=== PATIENT | female | born 1985 | race Caucasian/White ===

== ENCOUNTER → 2024-06-21 06:19 | Outpatient (REF) | payer OTHER, SELFPAY ==
[2024-06-21 07:34] LABS: Estradiol 1100.7 pg/ml
== END ==
LOC: REG 06:19
DX: Z13.29 Encounter for screening for other suspected endocrine disorder (principal); Z32.00 Encounter for pregnancy test, result unknown
CPT/HCPCS: 36415; 82670; 84144; 84702

== ENCOUNTER → 2024-07-05 06:19 | Outpatient (REF) | payer OTHER, SELFPAY ==
[2024-07-05 07:28] LABS: Estradiol 1393.2 pg/ml
== END ==
LOC: REG 06:19
DX: Z13.29 Encounter for screening for other suspected endocrine disorder (principal); Z32.00 Encounter for pregnancy test, result unknown
CPT/HCPCS: 36415; 82670; 84144; 84702

== ENCOUNTER 2024-10-26 05:16 | Emergency (ER) | payer OTHER, SELFPAY ==
[2024-10-26 05:30] VITALS: BP 113/76
[2024-10-26 05:58] LABS: % Basophils 1.1 % (0-2); % Eosinophils 8.5 % (0-6); % Immature Granulocytes 0.1 % (0-0.5); % Lymphocytes 38.5 % (20.5-51.1); % Monocytes 9.7 % (1.7-9.3); % Neutrophils 42.1 % (42.2-75.2); Absolute Basophils 0.1 10^3/uL (0-0.2); Absolute Eosinophils 0.6 10^3/uL (0-0.7); Absolute Lymphocytes 2.7 10^3/uL (1.2-3.4); Absolute Monocytes 0.7 10^3/uL (0.1-0.6); Hematocrit 38.8 % (37.0-47.0); Hemoglobin 13.3 g/dL (12.0-16.0); Mean Corp Hgb Conc. 34.3 g/dL (33.0-37.0); Mean Corpuscular Hgb 31.1 pg (27.0-31.0); Mean Corpuscular Volume 90.9 fL (81.0-99.0); Mean Platelet Volume 9.3 fL (7.4-10.4); Nucleated Red Blood Cells % 0 %; Platelet Count 269 10^3/uL (130-400); Red Blood Cell Count 4.27 10^6/uL (4.20-5.40); Red Cell Dist. Width 14.2 % (11.5-14.5)
[2024-10-26 06:09] LABS: HCG, Serum Qualitative Screen Negative
[2024-10-26 06:10] LABS: INR 0.93
[2024-10-26 06:16] LABS: ALT (SGPT) 21 U/L (0-35); AST (SGOT) 31 U/L (14-36); Alkaline Phosphatase 41 U/L (38-126); Blood Urea Nitrogen 18 mg/dl (7-17); Carbon Dioxide 28 mmol/L (22-30); Chloride 104 mmol/L (98-107); Glucose 108 mg/dl (70-99); Potassium 4.5 mmol/L (3.5-5.1); Sodium 142 mmol/L (135-145); Total Bilirubin 0.6 mg/dl (0.2-1.3); Total Protein 8.3 g/dl (6.3-8.2); eGFR > 60.00
--- NOTE | 2024-10-26 06:16 | ED.GENMED ---
History of Present Illness
General
Chief Complaint: DVT/Possible Blood Clot
Time Seen by Provider: 10/26/24 05:17
History of Present Illness
History of Present Illness:
39-year-old female with history of SVT, endometriosis, and prior pulmonary embolism provoked by fertility treatments presents to the emergency department for evaluation of bilateral lower extremity edema for the past several days. She also notes
occasional exertional dyspnea for the past 2 weeks. She will go to the exertional dyspnea to anxiety due to increased life stressors at home. Denies any chest pain. Prior PE was felt to be provoked by endometriosis surgery coupled with hormonal
fertility treatments, she was treated with Lovenox for a period of time but is no longer on anticoagulants. She is on metoprolol for history of SVT as well as Enbrel for RA
Review of Systems
Review of Systems
Allergies reviewed?: Yes
All Other Systems: ROS reviewed and negative except as documented in HPI and ROS
Phy Exam
Physical Exam
Physical Exam:
GEN: Well appearing, NAD, WDWN
HEENT: Oral mucosa moist, no scleral icterus
Cardiac: Regular rate and rhythm, no murmurs
Lung: No respiratory distress, no tachypnea, lungs clear to auscultation bilaterally
MSK: No gross deformity or injuries, trace lower extremity edema bilaterally
Skin: Good color, no pallor or jaundice, no rashes
Neuro: AO x3, moves all extremities freely
Psych: Calm, cooperative
Course
Orders/Labs/Results
Orders:
Orders
10/26/24 05:30
Test Result ONCE
10/26/24 05:51
Complete Blood Count/With Diff Urgent
Comprehensive Metabolic Panel Urgent
HCG, Serum Qualitative Screen Urgent
NT-proBNP Urgent
Comment: ADD ON
Prothrombin Time Urgent
10/26/24 06:16
Venous Doppler Lwr Ext Bilat [US Periph Venous LOWER Ext Aurelio] Urgent
Comment:
Reason For Exam: BLE edema h/o PE
10/26/24 07:59
CR Chest - 2 Views Urgent
Comment:
Reason For Exam: chest tightness
Abnormal Lab Results
10/26/24
05:51
MCH 31.1 H pg
(27.0-31.0)
Absolute Monos (auto) 0.7 H 10^3/uL
(0.1-0.6)
Neutrophils % 42.1 L %
(42.2-75.2)
Monocytes % 9.7 H %
(1.7-9.3)
Eosinophils % 8.5 H %
(0-6)
BUN 18 H mg/dl
(7-17)
Glucose 108 H mg/dl
(70-99)
Total Protein 8.3 H g/dl
(6.3-8.2)
10/26/24 05:51
10/26/24 05:51
Vital Signs
Initial and Last Documented VS:
Initial Vital Signs
Temp Pulse Resp BP Pulse Ox
97.8 F 84 18 113/76 100
10/26/24 05:30 10/26/24 05:30 10/26/24 05:30 10/26/24 05:30 10/26/24 05:30
Last Documented Vital Signs
Temp Pulse Resp BP Pulse Ox
97.8 F 84 18 113/76 100
10/26/24 05:30 10/26/24 05:30 10/26/24 05:30 10/26/24 05:30 10/26/24 05:30
MDM/Problems Addressed
MDM/Problems Addressed:
39-year-old female presents with asymmetric leg edema. She is negative for DVT by altered. She has a prior history of PE I have no suspicion for PE at this time. She she is free of chest pain and has no shortness of breath currently, not
currently on any hormones. Labs are reassuring, negative BNP essentially rules out CHF,
*Critical Care Note
Total Time (30-74mins, 75-104mins- exclusive of procedures): Not Applicable
ED Attending Note
-
Portions of this chart may have been created with voice recognition software.� Occasional wrong word or��sound alike� substitutions may have occurred due to the inherent limitations of voice recognition software.
Discharge Plan
Departure
Patient Disposition: Home (Routine Discharge)
Date of Disposition: 10/26/24
Time of Disposition: 08:12
Patient with high blood pressure during this ER visit?: No
Discharge Problem:
Leg edema
Instructions: Swelling
Referrals:
PRIVATE,PHYSICIAN [Family Provider] -
Activity Restrictions/Additional Instructions:
Try compression stockings and leg elevation
If chest tightness with exertion worsens, consider outpatient primary care follow up for echocardiogram
Interventions
Interventions:
*Risk Screen - Suicide Last Done: 10/26/24 05:18
*General Assessment Last Done: 10/26/24 05:18
*Neglect/Abuse Screening Last Done: 10/26/24 05:18
*ED- Fall Risk Assessment Last Done: 10/26/24 05:18
*ED COVID-19 Vaccine History Last Done: 10/26/24 06:13
ED- Cardiac Assessment Last Done: 10/26/24 06:15
ED- Pulmonary Assessment Last Done: 10/26/24 06:15
ED-Peripheral Vascular Assessment Last Done: 10/26/24 06:15
ED-Skin Assessment Last Done: 10/26/24 06:15
Discharge Date and Time
Print Language: ISRAELI
[2024-10-26 08:10] LABS: NT-proBNP 51.9 pg/ml
== END 2024-10-26 08:45 | disposition home or self-care (01) ==
LOC: EMR 05:16
PROVIDERS: Student in an Organized Health Care Education/Training Program; EMERGENCY PHYSICIAN Emergency Medicine
DX: R60.0 Localized edema (principal); N80.9 Endometriosis, unspecified; F41.9 Anxiety disorder, unspecified; Z86.711 Personal history of pulmonary embolism; Z86.79 Personal history of other diseases of the circulatory system
CPT/HCPCS: 99284; 71046; 80053; 83880; 84703; 85025; 85610; 93970